=== PATIENT | female | born 1975 | race African-American/Black ===

== ENCOUNTER 2018-08-08 03:42 | Inpatient (IN) | payer MEDICAID, OTHER ==
[~2018-08-08] VITALS: Ht 172.7 cm; Wt 56.7 kg
[2018-08-08] MEDS ORDERED: METHYLPREDNISOLONE SOD SUCC 125 MG/2 ML VIAL IV STA (03:49)
[2018-08-08] MEDS ORDERED: IPRATROPIUM/ALBUTEROL 0.5-3(2.5)MG/3ML NEB HHN ONE (04:00)
[2018-08-08] MEDS ORDERED: FUROSEMIDE 40MG/4ML VIAL IV ONE (04:00)
[2018-08-08 05:31] LABS: BG BASE EXCESS -0.4 mmol/L (-2.0-2.0); BG BILEVEL POS AIRWAY PRESSURE 15/5; BG CARBOXYHEMOGLOBIN 1.4 % (0.5-1.5); BG DEOXYHEMOGLOBIN 0.3 % (0.0-5.0); BG FRACTION INSPIRED OXYGEN 100; BG HCO3 ACT 22.5 mmol/L (22.0-26.0); BG METHEMOGLOBIN 0.3 % (0.0-1.5); BG OXYGEN SATURATION 99.7 % (92.0-98.5); BG PCO2 31.7 mmHg (35.0-45.0); BG PH 7.469 (7.350-7.450); BG PO2 364.1 mmHg (75.0-100.0); BG SAMPLE SITE RIGHT RADIAL; BG TOTAL HEMOGLOBIN 12.8 g/dL (12.0-18.0); BG VENT MODE MASK - BIPAP; BG VENT RATE 25 set
[2018-08-08] MEDS ORDERED: LEVOFLOXACIN 750MG PREMIX 150 ML IV ONE (05:45)
[2018-08-08 05:54] LABS: *AMPHETAMINES SCREEN URINE NEGATIVE (NEGATIVE); *BARBITURATES SCREEN URINE NEGATIVE (NEGATIVE); *BENZODIAZEPINES SCREEN URINE NEGATIVE (NEGATIVE); *COCAINE SCREEN URINE NEGATIVE (NEGATIVE); METHADONE URINE SCREEN NEGATIVE (NEGATIVE); OPIATES URINE SCREEN NEGATIVE (NEGATIVE)
[2018-08-08 05:56] LABS: PHENCYCLIDINE URINE SCREEN NEGATIVE (NEGATIVE)
[2018-08-08 06:08] LABS: CANNABINOID URINE SCREEN PRESUMTIVE POSITIVE (NEGATIVE)
[2018-08-08 07:21] LABS: HEMATOCRIT. 37.7 % (36.0-48.0); HEMOGLOBIN. 12.2 g/dL (12.0-16.0); MEAN CORPUSCULAR HEMOGLOBIN 24.9 pg (28.0-32.0); MEAN CORPUSCULAR VOLUME 77.1 fL (81.0-99.0); PLATELET 171 x1000/uL (130-400); RED BLOOD CELL COUNT 4.89 mill/uL (4.2-5.4)
[2018-08-08 07:27] LABS: CHLORIDE 104 mEq/L (98-107)
[2018-08-08 07:33] LABS: ETHANOL BLOOD < 10 mg/dL
[2018-08-08 07:38] LABS: HCG SCREEN NEGATIVE
[2018-08-08 07:43] LABS: D-DIMER 17.88 mg/L FEU (<0.50); INR 1.1; PARTIAL THROMBOPLASTIN TIME 26.4 sec (23.4-31.0); PROTHROMBIN TIME 11.1 sec (9.1-11.1)
[2018-08-08 08:19] LABS: PLATELET ESTIMATE NORMAL
[2018-08-08] MEDS ORDERED: ACETAMINOPHEN 325MG TABLET PO PRN (09:30)
[2018-08-08] MEDS ORDERED: MAGNESIUM/ALUMINUM HYDROXIDE/SIMETHICONE 30ML UDC PO PRN (09:30)
[2018-08-08] MEDS ORDERED: NA PHOS,M-B/NA PHOS,DI-BA ENEMA 118ML PR PRN (09:30)
[2018-08-08] MEDS ORDERED: DIPHENHYDRAMINE 50MG/ML VIAL IV PRN (09:30)
[2018-08-08] MEDS ORDERED: HYDROCODONE/ACETAMINOPHEN 5/325MG TABLET PO PRN (09:30)
[2018-08-08] MEDS ORDERED: IPRATROPIUM/ALBUTEROL 0.5-3(2.5)MG/3ML NEB INH PRN (09:30)
[2018-08-08] MEDS ORDERED: ONDANSETRON HCL 4MG/2ML INJ IV PRN (09:30)
[2018-08-08] MEDS ORDERED: ACETAMINOPHEN 650MG SUPP PR PRN (09:30)
[2018-08-08] MEDS ORDERED: GUAIFENESIN 200MG/10ML SUGAR FREE UDC PO PRN (09:30)
[2018-08-08] MEDS ORDERED: ACETAMINOPHEN 650MG/20.3ML UDC GT PRN (09:30)
[2018-08-08] MEDS ORDERED: CLONIDINE 0.1MG TABLET PO PRN (09:30)
[2018-08-08] MEDS: POTASSIUM CHLORIDE 20MEQ TABLET SR PO SCH (09:53)
[2018-08-08] MEDS: ENOXAPARIN 40MG/0.4ML SYR SUBCUT SCH (10:00)
[2018-08-08 14:44] LABS: CREATINE KINASE 100 IU/L (26-192); CREATINE KINASE MB FRACTION < 1.0 ng/mL (0.5-3.6)
[2018-08-08] MEDS ORDERED: IOHEXOL-350 100 ML BOTTLE ONE (15:25)
[2018-08-08 17:00] VITALS: BP 109/75
[2018-08-08] MEDS: FUROSEMIDE 40MG/4ML VIAL IV SCH (17:52)
[2018-08-08 18:29] VITALS: BP 129/95
[2018-08-08 20:04] VITALS: BP 102/69
[2018-08-08] MEDS ORDERED: IBUPROFEN 400MG TABLET PO PRN (21:00)
[2018-08-08] MEDS: SODIUM CHLORIDE 0.9% INJ 3ML FLUSH IVF SCH ×2 (21:37→21:49)
[2018-08-08 23:02] LABS: CREATINE KINASE 105 IU/L (26-192)
[2018-08-08 23:04] LABS: CREATINE KINASE MB FRACTION 1.2 ng/mL (0.5-3.6)
[2018-08-09] VITALS: BP 96/67
[2018-08-09 04:00] VITALS: BP 97/62
[2018-08-09] MEDS: SODIUM CHLORIDE 0.9% INJ 3ML FLUSH IVF SCH ×3 (06:21→21:13)
[2018-08-09] MEDS: FUROSEMIDE 40MG/4ML VIAL IV SCH ×2 (06:21→16:54)
[2018-08-09 06:31] LABS: CHLORIDE 103 mEq/L (98-107)
[2018-08-09 06:32] LABS: BASOPHILS % 0.4 % (0.0-2.0); EOSINOPHILS % 0.1 % (0.0-5.0); HEMATOCRIT. 35.1 % (36.0-48.0); HEMOGLOBIN. 11.3 g/dL (12.0-16.0); LYMPHOCYTES % 19.6 % (20.0-50.0); MEAN CORPUSCULAR HEMOGLOBIN 25.2 pg (28.0-32.0); MEAN CORPUSCULAR VOLUME 78.2 fL (81.0-99.0); MEAN PLATELET VOLUME 9.3 fl (7.4-10.4); MONOCYTES % 5.8 % (2.0-8.0); NEUTROPHILS % 74.1 % (40.0-76.0); PLATELET 165 x1000/uL (130-400); RED BLOOD CELL COUNT 4.49 mill/uL (4.2-5.4)
[2018-08-09 06:42] LABS: LDL CHOLESTEROL 65 mg/dL (5-100)
[2018-08-09 06:44] LABS: HDL CHOLESTEROL 68 mg/dL (40-59)
[2018-08-09 08:00] VITALS: BP 102/60
[2018-08-09] MEDS: POTASSIUM CHLORIDE 20MEQ TABLET SR PO SCH (08:44)
[2018-08-09] MEDS: ENOXAPARIN 40MG/0.4ML SYR SUBCUT SCH (08:44)
[2018-08-09 12:10] VITALS: BP 100/70
[2018-08-09] MEDS: NICOTINE 14MG PATCH TD SCH (14:00)
[2018-08-09] MEDS: AZITHROMYCIN 500 MG TABLET PO SCH (14:29)
[2018-08-09 16:15] VITALS: BP 108/62
[2018-08-09] MEDS: DOCUSATE SODIUM 100MG CAPSULE PO PRN (17:01)
[2018-08-09 20:12] VITALS: BP 110/83
[2018-08-10 00:13] VITALS: BP 98/71
[2018-08-10 04:12] VITALS: BP 106/81
[2018-08-10] MEDS: SODIUM CHLORIDE 0.9% INJ 3ML FLUSH IVF SCH ×3 (05:25→20:53)
[2018-08-10] MEDS: FUROSEMIDE 40MG/4ML VIAL IV SCH (06:28)
[2018-08-10 08:10] VITALS: BP 122/80
[2018-08-10] MEDS: NICOTINE 14MG PATCH TD SCH (09:00)
[2018-08-10] MEDS: AZITHROMYCIN 500 MG TABLET PO SCH (09:11)
[2018-08-10] MEDS: POTASSIUM CHLORIDE 20MEQ TABLET SR PO SCH (09:11)
[2018-08-10] MEDS: DOCUSATE SODIUM 100MG CAPSULE PO PRN (09:11)
[2018-08-10] MEDS: ENOXAPARIN 40MG/0.4ML SYR SUBCUT SCH (09:13)
[2018-08-10 11:45] VITALS: BP 132/88
[2018-08-10] MEDS ORDERED: FERR325T6 MT (12:00)
[2018-08-10] MEDS ORDERED: AMLO5TAB4 PO (12:00)
[2018-08-10 16:25] VITALS: BP 128/78
[2018-08-10 20:11] VITALS: BP 137/86
[2018-08-10] MEDS: AMLODIPINE 2.5MG TABLET PO SCH (20:54)
[2018-08-10] MEDS ORDERED: ZOLPIDEM TARTRATE 5MG TABLET PO PRN (22:15)
[2018-08-11] VITALS (8 sets, daily range): BP systolic 99–136; BP diastolic 62–95
[2018-08-11] MEDS: SODIUM CHLORIDE 0.9% INJ 3ML FLUSH IVF SCH ×3 (06:10→21:30)
[2018-08-11 06:34] LABS: BASOPHILS % 1.1 % (0.0-2.0); EOSINOPHILS % 1.1 % (0.0-5.0); HEMATOCRIT. 37.9 % (36.0-48.0); HEMOGLOBIN. 12.4 g/dL (12.0-16.0); LYMPHOCYTES % 47.8 % (20.0-50.0); MEAN CORPUSCULAR HEMOGLOBIN 25.4 pg (28.0-32.0); MEAN CORPUSCULAR VOLUME 77.7 fL (81.0-99.0); MONOCYTES % 9.6 % (2.0-8.0); NEUTROPHILS % 40.4 % (40.0-76.0); PLATELET 170 x1000/uL (130-400); RED BLOOD CELL COUNT 4.88 mill/uL (4.2-5.4); RED CELL DISTRIBUTION WIDTH 17.9 % (11.6-14.6)
[2018-08-11 07:37] LABS: CHLORIDE 101 mEq/L (98-107)
[2018-08-11] MEDS: AMLODIPINE 2.5MG TABLET PO SCH ×2 (08:00→21:07)
[2018-08-11] MEDS: NICOTINE 14MG PATCH TD SCH (08:12)
[2018-08-11] MEDS: AZITHROMYCIN 500 MG TABLET PO SCH (08:18)
[2018-08-11] MEDS: ENOXAPARIN 40MG/0.4ML SYR SUBCUT SCH (08:19)
[2018-08-11] MEDS: POTASSIUM CHLORIDE 20MEQ TABLET SR PO SCH (08:19)
[2018-08-11] MEDS ORDERED: FURO-151 MT (20:14)
[2018-08-11] MEDS ORDERED: AZIT500T5 PO (20:14)
== END 2018-08-11 22:15 | disposition home or self-care (01) | DRG 133 ==
LOC: ER 03:42 → 6WST 05:48 → EDBEDREQ 05:51 → EDBEDREQTM 05:51 → EDBEDREQSVC 05:51 → ENRESERV 14:53
PROVIDERS: ADMIT Family Medicine; ATTEND Family Medicine
PROC: 5A09357 Assistance with Respiratory Ventilation, Less than 24 Consecutive Hours, Continuous Positive Airway Pressure (ICD-10-PCS; principal; 2018-08-08)
DX: J96.00 Acute respiratory failure, unspecified whether with hypoxia or hypercapnia (principal); I50.41 Acute combined systolic (congestive) and diastolic (congestive) heart failure; I42.9 Cardiomyopathy, unspecified; E87.5 Hyperkalemia; E44.1 Mild protein-calorie malnutrition; R04.2 Hemoptysis; J44.9 Chronic obstructive pulmonary disease, unspecified; I11.0 Hypertensive heart disease with heart failure; I05.0 Rheumatic mitral stenosis; F12.90 Cannabis use, unspecified, uncomplicated; R59.0 Localized enlarged lymph nodes; R73.9 Hyperglycemia, unspecified; G40.909 Epilepsy, unspecified, not intractable, without status epilepticus; I25.10 Atherosclerotic heart disease of native coronary artery without angina pectoris; Z95.2 Presence of prosthetic heart valve; Z87.891 Personal history of nicotine dependence; Z71.6 Tobacco abuse counseling; Z68.1 Body mass index [BMI] 19.9 or less, adult; Z88.8 Allergy status to other drugs, medicaments and biological substances
CPT/HCPCS: 36415; 36600; 70496; 71045; 71275; 80048; 80061; 80305; 80320; 82375; 82550; 82553; 82805; 83605; 83735; 83880; 84484; 84703; 85379; 87804; 93005; 93306; 93970; 96374; 99285; J1650; J1940; J1956; J2930; J7620; Q9967; G0480